=== PATIENT | female | born 1980 | race African-American/Black ===

== ENCOUNTER 2019-07-29 15:00 | Emergency (ER) | payer MEDICAID ==
[~2019-07-29] VITALS: Ht 182.9 cm; Wt 82.0 kg
[2019-07-29 15:09] VITALS: BP 152/98
== END 2019-07-29 16:26 | disposition left against medical advice (07) ==
LOC: ER 15:00 → EDBD 15:00 → ER 16:26
DX: Z53.21 Procedure and treatment not carried out due to patient leaving prior to being seen by health care provider (principal)